=== PATIENT | male | born 2000 | race Hispanic/Latino ===

== ENCOUNTER 2019-01-04 02:38 | Emergency (ER) | payer OTHER ==
[2019-01-04] MEDS ORDERED: BACITRACIN 28.4 GM OINT TP ONE (02:39)
[2019-01-04] MEDS ORDERED: LIDOCAINE HCL 2% JELLY 5 ML ONE (03:41)
[2019-01-04] MEDS ORDERED: SULFAMETHOX-TMP DS 800/160 TAB ONE (03:41)
== END 2019-01-04 04:03 | disposition home or self-care (01) ==
LOC: EDH 02:38
DX: S31.21XA Laceration without foreign body of penis, initial encounter (principal); Z72.0 Tobacco use; X58.XXXA Exposure to other specified factors, initial encounter; Y93.89 Activity, other specified; Y92.89 Other specified places as the place of occurrence of the external cause; Y99.8 Other external cause status